=== PATIENT | female | born 1980 | race Caucasian/White ===

== ENCOUNTER 2020-03-17 13:04 | Outpatient (CLI) | payer OTHER | END 2020-03-17 13:15 | disposition home or self-care (01) | LOC: SONOGRAMA 13:04 → MAMO-SONO 13:15 → SONOGRAMA 13:15 | DX: E04.1 Nontoxic single thyroid nodule (principal) ==

== ENCOUNTER → 2020-04-15 08:59 | Outpatient (CLI) | payer OTHER | END | disposition home or self-care (01) | LOC: LAB 08:59 | PROVIDERS: ATTEND General Practice | DX: D50.8 Other iron deficiency anemias (principal); E55.9 Vitamin D deficiency, unspecified; E03.8 Other specified hypothyroidism; E78.00 Pure hypercholesterolemia, unspecified; E11.00 Type 2 diabetes mellitus with hyperosmolarity without nonketotic hyperglycemic-hyperosmolar coma (NKHHC); E11.9 Type 2 diabetes mellitus without complications; E78.2 Mixed hyperlipidemia; E23.0 Hypopituitarism ==

== ENCOUNTER 2020-08-10 13:47 | Outpatient (CLI) | payer OTHER | END 2020-08-10 13:56 | disposition home or self-care (01) | LOC: MAMO-SONO 13:47 | PROVIDERS: ATTEND General Practice | DX: N60.11 Diffuse cystic mastopathy of right breast (principal); N64.59 Other signs and symptoms in breast ==

== ENCOUNTER 2021-05-15 10:27 | Outpatient (CLI) | payer OTHER | END 2021-05-15 14:23 | disposition home or self-care (01) | LOC: SONOGRAMA 10:27 | PROVIDERS: ATTEND Pathology Anatomic Pathology & Clinical Pathology | DX: E04.2 Nontoxic multinodular goiter (principal) ==

== ENCOUNTER 2023-05-07 07:56 | Outpatient (CLI) | payer OTHER ==
[2023-05-07 08:50] LABS: HEMATOCRIT 41.1 % (36.0-45.00); HEMOGLOBIN 13.7 g/dL (12.0-15.00); MEAN CELL VOLUME 81.7 fL (80.00-100.00); MEAN CORPUSCULAR HEMOGLOBIN 27.2 pg (27.00-32.0); MEAN CORPUSCULAR HGB CONC 33.3 g/dl (32.0-36.0); PLATELET COUNT 240 K/uL (150-450); RED BLOOD COUNT 5.02 M/uL (4.00-6.00)
[2023-05-07 09:28] LABS: PH,URINE 5.5 (5.0-8.0); URINE APPEARANCE Cloudy; URINE BILIRRUBIN Negative (NEGATIVE); URINE BLOOD Negative; URINE COLOR Dark Yellow; URINE GLUCOSE Negative (NEGATIVE); URINE LEUKOCYTE Small; URINE NITRATE Negative; URINE PROTEIN Trace (NEGATIVE)
[2023-05-07 09:35] LABS: URINE RBC 6.8 uL (0.0-20.8); URINE WBC 117.8 uL (0.0-23.2)
[2023-05-07 09:45] LABS: ALBUMIN 4.2 gm/dL (3.4-5.0); BILIRUBIN TOTAL 0.59 mg/dL (0.3-1.2); CALCIUM 9.7 mg/dL (8.5-10.1); CHOL HDL RATIO 4.6 (0-5.0); CREATININE SERUM 0.81 mg/dL (0.55-1.02); GFR 77.54; GLOBULINA 4.3 G/DL (2.4-3.5); POTASSIUM 4.2 mEq/L (3.5-5.1); TOTAL PROTEIN 8.5 gm/dL (6.4-8.2); TSH 0.628 uIU/mL (0.358-3.74)
== END 2023-05-07 07:57 | disposition home or self-care (01) ==
LOC: LAB 07:56
PROVIDERS: ATTEND Internal Medicine
DX: D64.9 Anemia, unspecified (principal); N39.0 Urinary tract infection, site not specified; R10.9 Unspecified abdominal pain; E03.9 Hypothyroidism, unspecified; E78.5 Hyperlipidemia, unspecified; E11.9 Type 2 diabetes mellitus without complications; I10 Essential (primary) hypertension

== ENCOUNTER 2025-03-21 11:18 | Emergency (ER) | payer OTHER ==
[~2025-03-21] VITALS: Ht 170.2 cm; Wt 83.0 kg
[2025-03-21] MEDS ORDERED: KETOROLAC TROMETHAMINE 30 MG VIAL IU STA (12:07)
[2025-03-21] MEDS ORDERED: PHENAZOPYRIDINE HCL 100 MG TABLET PO STA (12:07)
[2025-03-21] MEDS ORDERED: TAMSULOSIN HCL 0.4 MG CAP PO STA (12:07)
[2025-03-21] MEDS ORDERED: KETOROLAC TROMETHAMINE 30 MG VIAL ONE (12:13)
[2025-03-21] MEDS ORDERED: PHENAZOPYRIDINE HCL 100 MG TABLET PO ONE (12:14)
[2025-03-21] MEDS ORDERED: TAMSULOSIN HCL 0.4 MG CAP PO ONE (12:14)
[2025-03-21] MEDS ORDERED: 0.9 % SODIUM CHLORIDE 1,000 ML IV SCH (12:15)
[2025-03-21 12:46] LABS: BASO % 0.5 % (0.1-1.2); EOS # 0.04 (0.04-0.54); EOS % 0.3 % (0.7-7.0); LYMPH # 1.68 (1.18-3.74); LYMPH % 14.2 % (19.3-53.1); MEAN PLATELET VOLUME 10.50 fl (9.4-12.4); MONO # 0.54 (0.24-0.82); MONO % 4.6 % (4.7-12.5); NEUT # 9.50 (1.56-6.13); NEUT % 80.1 % (34.0-71.1); RED CELL DISTRIBUTION WIDTH 14.4 % (11.6-14.4)
[2025-03-21 13:16] LABS: ALT/SGPT 25 U/L (12-78); AST/SGOT 9 U/L (15-37); BILIRUBIN TOTAL 0.48 mg/dL (0.3-1.2); BUN CREA RATIO 18 (7.0-25.0); CREATININE SERUM 0.77 mg/dL (0.55-1.02); GFR 81.43; GLOBULINA 4.0 G/DL (2.4-3.5); GLUCOSE FASTING 105 mg/dL (65-100); OSMOLALITY SERUM 280 MOSM/KG (275-295)
[2025-03-21 13:35] LABS: URINE APPEARANCE Cloudy; URINE BILIRRUBIN Negative (NEGATIVE); URINE BLOOD Large; URINE COLOR Yellow; URINE GLUCOSE Negative (NEGATIVE); URINE KETONE Negative (NEGATIVE); URINE LEUKOCYTE Moderate; URINE NITRATE Positive; URINE PROTEIN 30 (NEGATIVE); URINE UROBILINOGEN 0.2 E.U./dl
[2025-03-21 13:38] LABS: URINE EPITHELIAL CELLS 26.7 uL (0.0-38.8); URINE RBC 301.1 uL (0.0-20.8); URINE WBC 2015.1 uL (0.0-23.2)
[2025-03-21 13:53] LABS: URINE BACTERIA > 9821.5 uL (0.0-1933); URINE CAST 0.29 uL (0.0-1.40); URINE YEAST NEGATIVE /hpf
[2025-03-21] MEDS ORDERED: CEFTRIAXONE SODIUM 1,000 MG VIAL IM STA (15:51)
[2025-03-21] MEDS ORDERED: CEFTRIAXONE SODIUM 1,000 MG VIAL ONE (16:03)
== END 2025-03-21 16:24 | disposition home or self-care (01) ==
LOC: ER 11:18
PROVIDERS: Physician Assistant Medical
DX: N39.0 Urinary tract infection, site not specified (principal)